=== PATIENT | female | born 1980 | race Caucasian/White ===

== ENCOUNTER → 2016-10-26 | Outpatient (CLI) | payer OTHER ==
[~2016-10-26] MED LIST: CELEXA20 M1; MAXZIDE 75-501 EACH PO
== END | disposition home or self-care (01) ==
LOC: CBAR 10:24
DX: Z01.812 Encounter for preprocedural laboratory examination (principal); E66.01 Morbid (severe) obesity due to excess calories
CPT/HCPCS: 36415; 84443; 86677; G0463

== ENCOUNTER → 2016-11-02 | Outpatient (CLI) | payer OTHER ==
--- NOTE | ~2016-11-02 | CR97 ---
[facility] A Service of [facility] RADIOLOGY TEXT RESULTS PATIENT: RACHEAL LYON LOCATION: [facility] : [birth year] UNIT #: [id number] AGE: [address]: Tutu Ziegler III, MD SEX: F ORDER DR: [id number] [address] [address] [facility]. [place], [place] [address] [id number] O MR#: [id number] Acc #: [id number] NAME: RACHEAL LYON : 1980 SEX: F STUDY DATE/TIME: 11/02/2016 9:51 UNIT: [facility] ROOM: STUDY DESCRIPTION: CR Esophagram Attending Physician: Tutu Ziegler III, M.D. Referring Physician: Tutu Ziegler III, M.D. Ordering Physician: Tutu Ziegler III, M.D. Primary Care Physician: Generic Doctor Not In System MEDICAL IMAGING REPORT This report is preliminary unless electronic signature is present EXAM Esophagram, 11/02/2016 INDICATION 36-year-old female presenting for Lap-Band placement and possible paraesophageal hernia repair. Shortness of air with activity. Hypertension. Symptoms began today. Pneumonia in 2009. Cough and congestion. TECHNIQUE Spot fluoroscopic views of the esophagus were obtained in various projections after the patient ingested gas crystals and thick and thin liquid barium on 11/02/2016. COMPARISON We have no comparisons. FINDINGS Notes indicate 1 minute of fluoroscopy time was used in the case. Forty-six images from the procedure were saved to the [employer] system. The patient had difficulty tolerating the barium load. These were the best images possible. The esophagus demonstrates an unremarkable primary stripping wave. No significant secondary or tertiary contractions identified. No focal esophageal mass, stricture or mucosal abnormality. No hiatal hernia. IMPRESSION 1. Negative esophagram. 2. Notes indicate that 1 minute of fluoroscopy time was used in the case. Forty-six images from the procedure were saved to the [employer] system. [facility] A Service [facility] RADIOLOGY TEXT RESULTS PATIENT: RACHEAL LYON [id number] : [birth year] UNIT #: [id number] AGE: [address]: Tutu Ziegler III, MD SEX: F ORDER DR: Dictated by... Johnathan Schofield M.D. THIS IS AN ELECTRONICALLY VERIFIED REPORT Johnathan Schofield M.D. at 11/02/2016 5:18 PM Shoaib TD: 11/02/2016 14:07 JOB #: [id number] MEDICAL IMAGING REPORT Page 1 of 1 COPY
--- NOTE | ~2016-11-02 | EKG ---
PATIENT: RACHEAL LYON UNIT #: [id number] Ventricular Rate: 87 BPM Atrial Rate: 87 BPM P-R Interval: 130 ms QRS Duration: 80 ms Q-T Interval: 368 ms QTC Calculation(Bezet): 442 ms P Cleves: 21 degrees Calculated R Cleves: 33 degrees Calculated T Cleves: 18 degrees Diagnosis Line: Normal sinus rhythm Diagnosis Line: Low voltage QRS Diagnosis Line: Borderline ECG Diagnosis Line: No previous ECGs available Diagnosis Line: Confirmed by ROBBIN KRUGER MD ([id number]) on 11/02/2016 Diagnosis Line: 5:01:05 PM INTERPRETING MD: SLICK VILLARREAL
--- NOTE | ~2016-11-02 | CR63 ---
[facility] A Service of [facility] RADIOLOGY TEXT RESULTS PATIENT: RACHEAL LYON LOCATION: [facility] : 81 UNIT #: [id number] AGE: [address]: Tutu Ziegler III, MD SEX: F ORDER DR: [id number] [facility] [address] [place], [place] [address] [id number] O MR#: [id number] Acc #: [id number] NAME: RACHEAL LYON : 1980 SEX: F STUDY DATE/TIME: 11/02/2016 8:18 UNIT: [facility] ROOM: STUDY DESCRIPTION: CR Chest 2 View Attending Physician: Tutu Ziegler III, M.D. Referring Physician: Tutu Ziegler III, M.D. Ordering Physician: Tutu Ziegler III, M.D. Primary Care Physician: Sherman Not Listed MEDICAL IMAGING REPORT This report is preliminary unless electronic signature is present EXAM Chest, PA and lateral, 11/02/2016. HISTORY Morbid obesity, preop laparoscopic gastric banding. Benign essential hypertension, shortness of breath on exertion today, cough and chest congestion. Smoking history. FINDINGS PA and lateral examination of the chest upright shows a good expansion of the parenchyma with a normal distribution of the pulmonary vascularity. There is no indication of congestion, effusion, infiltrate, tumor, or nodular density. The pleural reflections and diaphragmatic contours are normal. The cardiac silhouette and mediastinal anatomy is within normal limits. IMPRESSION Normal chest. Dictated by... Carlos Fuentes M.D. THIS IS AN ELECTRONICALLY VERIFIED REPORT Carlos Fuentes M.D. at 11/02/2016 4:52 PM DACIA/jasbir TD: 11/02/2016 12:43 JOB #: [id number] MEDICAL IMAGING REPORT Page 1 of 1 COPY
[2016-11-02 10:01] LABS: HEMATOCRIT 41.6 % (35.0-45.0); HEMOGLOBIN 14.4 gm/dL (12.0-16.0); MEAN CELL VOLUME 94.9 FL (83-96); MEAN CORPUSCULAR HEMOGLOBIN 32.9 PG (28-34); MEAN CORPUSCULAR HGB CONC 34.7 g/dL (30-36); MEAN PLATELET VOLUME 8.7 FL (6.5-11.5); RED BLOOD COUNT 4.38 X10e (3.90-5.30); RED CELL DISTRIBUTION WIDTH 12.3 % (11.0-15.5); WHITE BLOOD COUNT 9.1 X10e3 (4.0-10.5)
[2016-11-02 11:12] LABS: ALBUMIN SERUM 4.1 g/dL (3.5-5.0); BILIRUBIN,TOTAL 0.4 mg/dL (0.2-2.0); BUN/CREATININE RATIO 32.5; CALCIUM SERUM 9.1 mg/dL (8.4-10.2); CREATININE SERUM 0.4 mg/dL (0.6-1.4); POTASSIUM 4.2 mmol/L (3.5-5.1); PROTEIN TOTAL SERUM 6.9 g/dL (6.0-8.3)
== END | disposition home or self-care (01) ==
LOC: CRAD 08:08 → CAMB 09:30
PROVIDERS: Surgery
DX: Z01.818 Encounter for other preprocedural examination (principal); E66.01 Morbid (severe) obesity due to excess calories
CPT/HCPCS: 36415; 71020; 74220; 80053; 80061; 84443; 85027; 93005

== ENCOUNTER → 2016-11-14 | Day surgery (SDC) | payer OTHER ==
--- NOTE | ~2016-11-14 | CR7 ---
[facility] A Service of [facility] RADIOLOGY TEXT RESULTS PATIENT: RACHEAL LYON LOCATION: [facility] : 82 UNIT #: [id number] AGE: [address]: Tutu Ziegler III, MD SEX: F ORDER DR: [id number] [facility] [address] [place], [place] [address] [id number] O MR#: [id number] Acc #: [id number] NAME: RACHEAL LYON : 1980 SEX: F STUDY DATE/TIME: 11/14/2016 11:40 UNIT: [facility] ROOM: STUDY DESCRIPTION: CR Abdomen Single AP View Attending Physician: Tutu Ziegler III, M.D. Referring Physician: Tutu Ziegler III, M.D. Ordering Physician: Tutu Ziegler III, M.D. Primary Care Physician: Generic Doctor Not In System MEDICAL IMAGING REPORT This report is preliminary unless electronic signature is present EXAM Abdominal radiograph HISTORY Postop lap band PACU back. FINDINGS AP radiograph of the abdomen is presented. The heart upper limits of normal in size. Visualized pulmonary parenchyma clear. Status post lap band device placement. Band component at anticipated location of gastroesophageal junction based on esophagram dated 11/02/2016. It is at approximately 61 degrees from vertical. The visualized catheter component is intact. Catheter component not on the view. Bowel gas pattern normal. No free air. Bony structures unremarkable. Dictated by... Dony Meza M.D. THIS IS AN ELECTRONICALLY VERIFIED REPORT Dony Meza M.D. at 11/15/2016 5:13 PM ALONDRA/brian TD: 11/14/2016 13:09 JOB #: [id number] MEDICAL IMAGING REPORT Page 1 of 1 COPY
--- NOTE | ~2016-11-14 | OR ---
Unit #: [id number] #: [id number] Patient: RACHEAL LYON [id number] [facility] [address] [place], [place] [address] [id number] O MR#: [id number] NAME: RACHEAL LYON ROOM: Date of Procedure: 11/14/2016 Admission Date: 11/14/2016 Surgeon: Tutu Ziegler III, M.D. : 1980 Attending Physician: Tutu Ziegler III, M.D. Referring Physician: Tutu Ziegler III, M.D. Primary Care Physician: Generic Doctor Not In System OPERATIVE REPORT PREOPERATIVE DIAGNOSIS Chronic morbid obesity. POSTOPERATIVE DIAGNOSES 1. Chronic morbid obesity. 2. Anterior paraesophageal hernia. PROCEDURES PERFORMED Laparoscopic adjustable gastric banding (AP standard with low-profile port) and laparoscopic paraesophageal hernia repair. POLICE RESERVES COMMANDER Dr. Dony Willard. SPECIMENS None. COMPLICATIONS None apparent. ESTIMATED BLOOD LOSS Minimal. ANESTHESIA General endotracheal tube anesthesia. INDICATIONS FOR PROCEDURE This is a 36-year-old lady, who has chronic morbid obesity with a BMI of 45 and associated comorbidities of hypertension and elevated cholesterol levels. She has been through the bariatric program at [facility] and understands risks and benefits of the procedure. DESCRIPTION OF PROCEDURE After consent was obtained, including the risks and benefits of slippage, erosion, port dysfunction, and possible failure of weight loss due to noncompliance, the patient was taken to the operating room and placed in the supine position. General anesthetic was administered and the abdomen was prepped and draped in standard surgical fashion. I began by making a 2 cm incision just above and to the left of the umbilicus. I used a Visiport to enter the peritoneal cavity without any difficulty. C02 pneumoperitoneum was then established. Next, I placed a Unit #: [id number] #: [id number] Patient: RACHEAL LYON 5 mm port in the right upper quadrant, a 5 mm Diogo liver retractor in the subxiphoid region to provide exposure of the gastroesophageal junction. Next, a 10 mm port was placed in the left upper quadrant and a 5 mm port was placed in the left lateral subcostal region. I began by performing an examination of the GE junction to evaluate for a hiatal hernia. We then scored the peritoneal attachments overlying the angle of His. I then opened up the clear space in the gastrohepatic ligament, and then using 2 blunt graspers, I identified the small fat pad crossing over the right crura. I swept the fat anterior to the crura off the crura and using the pars flaccida, I created a retrogastric tunnel where the blunt grasper exited at the angle of His. Once I had made this tunnel safely, I then inserted an Allergan AP band into the abdominal cavity. This adjustable gastric band was then place around the upper part of the stomach and fastened and buckled anteriorly. We then tacked the lateral fundus over the band to the proximal pouch with 2 interrupted 0 Ethibond sutures. I then used a third stitch to imbricate the excess anterior stomach by going from the lesser curvature up towards where the last stitch was placed. We then had excellent hemostasis. I removed the Diogo liver retractor. We then removed the port tubing through the initial port incision. The rest of the ports were removed, and the pneumoperitoneum was released. I then left a small tail on the tubing. We then attached the port to the excess band tubing. We placed a piece of Prolene mesh along the back side of the port and used a Prolene stitch to anchor this mesh in place. We then trimmed the excess mesh so that just a small footprint of mesh was in place behind the port. I then inserted the tubing back into the abdominal cavity, and we placed the port into a small pocket that was made just inferior to where our initial port incision was made. The mesh was in direct contact with the fascia, and this will scar in place to hold the port in place. We then injected all the port sites with 0.25% plain Marcaine, and I reapproximated the skin edges with interrupted 4-0 Vicryl subcuticular sutures. Steri-strips were then applied. The patient tolerated the procedure without any problems and returned to the recovery room in stable condition. ADDENDUM After exposure of the GE junction, the patient was noted to have a small to medium size anterior paraesophageal hernia. I scored the phrenoesophageal ligament, reduced the hernia defect and after identifying both the right and left crura, I reapproximated the defect with an interrupted 0 Ethibond [id number] suture. I then proceeded with the case as listed above. Dictated by... Tutu Ziegler III, M.D. VCL/em TD: 11/15/2016 16:27 JOB #: [id number] CC: Tanvi Fuentes A.P.R.N. Unit #: [id number] #: [id number] Patient: RACHEAL LYON OPERATIVE REPORT Page 1 of 1 X Tutu Ziegler III, MD PROCEDURE OPERATIVE NOTE
== END | disposition home or self-care (01) ==
LOC: CSUR 08:55
DX: E66.01 Morbid (severe) obesity due to excess calories (principal); K44.9 Diaphragmatic hernia without obstruction or gangrene; I10 Essential (primary) hypertension; E78.5 Hyperlipidemia, unspecified; M19.90 Unspecified osteoarthritis, unspecified site; F17.210 Nicotine dependence, cigarettes, uncomplicated; Z68.42 Body mass index [BMI] 45.0-49.9, adult; Z87.442 Personal history of urinary calculi; Z88.2 Allergy status to sulfonamides; Z79.899 Other long term (current) drug therapy
CPT/HCPCS: 74000; 84703; C1781; J0330; J0690; J1100; J1650; J1885; J2250; J2405; J2710; J3010